=== PATIENT | female | born 1955 | race Caucasian/White ===

== ENCOUNTER 2019-01-10 12:49 | Day surgery (SDC) | payer MEDICARE, OTHER, SELFPAY ==
--- NOTE | 2019-01-10 | PATH_ITS ---
[facility] Accession Number: [id number] . 01 Material submitted: . PART A: DUODENUM BIOPSY PART B: ANTRUM BIOPSIES PART C: GE JUNCTION BIOPSIES PART D: POLYP AT 20CM . 02 Diagnosis: A. Duodenum, Biopsy: Duodenal mucosa with gastric heterotopia. Negative for increased intraepithelial lymphocytes or villous blunting. Negative for dysplasia and malignancy. . B. Stomach, Antrum, Biopsies: Antral mucosa with no diagnostic abnormality. No evidence of Helicobacter on H/E stain. Negative for intestinal metaplasia. Negative for dysplasia and malignancy. . C. Gastroesophageal Junction, Biopsies: Squamocolumnar junctional mucosa with no diagnostic abnormality. Negative for intestinal metaplasia. Negative for dysplasia and malignancy. . D. Colon, Polyp at 20 cm, Biopsy: Serrated lesion, favor sessile serrated adenoma. Benign spindled cell lesion, favor perineurioma. No evidence of atypia or high-grade dysplasia. [facility]/01/12/2019 . 02 Electronically signed: . Radha Al MD, Pathologist NPI- [id number] . 01 Gross description: . Received four formalin-filled containers, each labeled with the patient's name: . A. In a container labeled duodenum, the specimen consists of a 0.2 cm portion of tissue, entirely submitted in cassette A. B. In a container labeled antrum, the specimen consists of two 0.2-0.3 cm portions of tissue, entirely submitted in cassette B. C. In a container labeled GE junction, the specimen consists of three less than 0.1 cm to 0.3 cm portions of tissue, entirely submitted in cassette C. D. In a container labeled polyp at 20 cm, the specimen consists of a 0.4 cm portion of tissue, entirely submitted in cassette D. ([id number]) /FRR . 02 Microscopic: . Part C: An alcian blue stain was performed to evaluate for intestinal metaplasia and is negative. The control stain showed appropriate reactivity. . Part D: Immunohistochemical stains were performed to characterize the cells of interest. The control stains showed appropriate reactivity. . RESULTS: Desmin: Negative. S100: Negative. DOG1: Negative. . INTERPRETATION: The absence of desmin, S100 and DOG1 argue against leiomyoma, neuroma, and gastrointestinal stromal tumor, respectively. . * This test was developed and its performance characteristics determined by [facility]. It has not been cleared or approved by the U.S. Food and Drug Administration. The FDA has determined that such clearance or approval is not necessary. This test is used for clinical purposes. It should not be regarded as investigational or for research. . 02 Pathologist provided ICD-10: K31.7 . 02 CPT . 956318, 589249, 033566, 344835, R03789, [id number], 384396 Performed at: 01 [facility] [address] [place] [address], [place], [place] [id number] MD Bran Li MD Phone: [phone] Performed at: 02 [facility] [address] [place], [place] [id number] MD Radha Al MD Phone: [phone]
[2019-01-10 13:13] VITALS: BP 150/77; PULSE 77; RESP 16; TEMP 36.7; O2SAT 100; BMI 26.6
[2019-01-10] MEDS: LACTATED RINGERS 1,000 ML 150 ML IV (13:37)
[2019-01-10] MEDS: TETRACAINE/BENZOCAINE/BUTAMBEN (CETACAINE) BOTTLE 1 SPRAY TOP (15:01)
[2019-01-10] MEDS: LIDOCAINE 4% SOLN 50 ML 20 ML TOP (15:02)
[2019-01-10] MEDS: fentaNYL 250 MCG/5 ML INJ IV (15:18)
[2019-01-10] MEDS: MIDAZOLAM 5 MG/5 ML VIAL IV (15:19)
[2019-01-10 15:21] VITALS: BP 104/59; PULSE 65; RESP 16; TEMP 36.4; O2SAT 97
--- NOTE | 2019-01-10 15:22 | PM.HP.1 ---
History of Present Illness Date Patient Seen: 01/10/19 Time Patient Seen: 15:22 Chief complaint: EGD +COLONOSCOPY [id number] Narrative: Lida is a pleasant 63-year-old lady who presents for screening colonoscopy and endoscopy. We have discussed the risks and benefits of the procedure. She denies any changes in her health since I last saw her in the office on December 13 Patient History Family History Father Hypertension Social History marital status: household members: spouse occupational status: previously employed Smoking Status: Never smoker alcohol intake: never substance use type: does not use Family & Social History Family History Father Hypertension Social History: household members spouse Tobacco & Substance use: Smoking Status Never smoker alcohol intake never Meds Home Medications Medication Instructions Recorded Confirmed Type aspirin 81 mg chewable tablet 81 mg PO DAILY 12/13/18 01/10/19 History simvastatin 20 mg tablet 20 mg PO BEDTIME 12/13/18 01/10/19 History Allergies Allergy/AdvReac Type Severity Reaction Status Date / Time No Known Drug Allergies Allergy Unverified 12/13/18 09:40 Review of Systems Review of Systems All systems reviewed & are unremarkable except as noted in HPI and below Exam Vital Signs (past 8 hours): - 01/10/19 13:13 Temperature 98.1 F Pulse Rate 77 Respiratory Rate 16 Blood Pressure 150/77 H Pulse Oximetry 100 Oxygen Delivery Method Room Air Narrative Exam Narrative: Pleasant well-nourished lady in no distress HEENT: Normocephalic and atraumatic, pupils equal round reactive to light accommodation with anicteric sclera Lungs: Clear bilaterally Heart: Regular rate and rhythm Abdomen: Soft, nontender, active bowel sounds Extremities: Warm well perfused without edema Assessment & Plan Assessment & Plan narrative: Pleasant lady who is in need of a screening colonoscopy and an EGD for longstanding gastroesophageal reflux disease. We discussed the risks and benefits of both procedures and the patient expressed a desire to complete them both today.
--- NOTE | 2019-01-10 15:23 | PM.OP.1 ---
Operative Date/Time/Diagnoses Date of procedure: 01/10/19 Time of procedure: 15:23 Pre-op diagnosis: Gastroesophageal reflux disease Screening study Procedure & Clinicians Procedure: Esophagogastroduodenoscopy with biopsies and colonoscopy to the cecum with polypectomy x1 Same procedure as scheduled: Yes Indications: Last colonoscopy approximately 10 years ago Surgeon: Neena Brooks Anesthesia Type: Sedation (Versed 12 mg; fentanyl 300 mcg) Operative Notes Findings: 1. Nodular appearing mucosa in the bulb of the duodenum 2. Normal-appearing antrum without evidence of recent hemorrhage or ulceration 3. A few hyperplastic Freda glands present in the fundus of the stomach 4. Esophageal hiatus at 39 cm from the incisors 5. Mucosal junction at 36-37 cm from the incisors. The junction itself is quite irregular and there is 1 long tongue of ulcerated tissue covered in fibrinous exudate. The total length is approximately 1 cm. 6. Normal posterior oropharynx and vocal cords 7. Adequate prep 8. Mild diverticulosis limited to the sigmoid region 9. Polyp or submucosal lesion at 20 cm from the anal verge. Removed with cold forceps and retained for pathology 10. Grade 1-2 internal hemorrhoids Closure Type: not applicable Specimen(s): other (Polyp at 20 cm from the anal verge) Estimated Blood Loss (mL): 1 Procedure in detail: After obtaining informed consent, the patient was brought to the GI suite and placed in the left lateral decubitus position on the examination table. After placement of appropriate monitors, the patient was given incremental doses of Versed and Fentanyl until an appropriate level of sedation was achieved. A time out was held per SCOAP protocol. A digital rectal examination was performed and did not reveal any masses or obstructing lesions. The colonoscope was gently passed into the patient's anus and the entire colon navigated to the level of the cecum with minimal difficulty. Once in the cecum, the scope was withdrawn being sure to go before and beyond all mucosal folds and prominences and get an excellent examination. The findings are noted above. At the level of the rectal vault, the scope was retroflexed and the internal anal canal was examined. The scope was straightened and air aspirated from the colon. The instrument was removed from the patient's body and the procedure was concluded. The patient was allowed to awaken from sedation without difficulty and taken to the post-anesthesia care unit in good condition. Total sedation time was 32 min Total colonoscopy withdrawal time was 8 min and 4 sec Complications: none Condition: stable Disposition: PACU Plan for aftercare: 1. Discharge to home 2. Plan for next colonoscopy in 5 years or as clinically indicated 3. Start Protonix twice daily for 1 week and then once daily for 1 month thereafter. 4. Await pathology results for further recommendations regarding reflux symptoms.
[2019-01-10 15:25] VITALS: BP 93/52; PULSE 63; RESP 16; O2SAT 98
[2019-01-10 15:30] VITALS: BP 93/54; PULSE 62; RESP 17; O2SAT 99
[2019-01-10 15:38] VITALS: BP 146/82; PULSE 82; RESP 16; TEMP 36.6; O2SAT 99
== END 2019-01-10 16:05 | disposition home or self-care (01) ==
PROVIDERS: PCP Physician Assistant; Visit Provider Surgery
PROC: 0DJ08ZZ Inspection of Upper Intestinal Tract, Via Natural or Artificial Opening Endoscopic (ICD-10-PCS; CPT 43235; principal; 2019-01-10 14:00)
PROC: 0DJD8ZZ Inspection of Lower Intestinal Tract, Via Natural or Artificial Opening Endoscopic (ICD-10-PCS; CPT 45378; 2019-01-10 14:00)
DX: Z12.11 Encounter for screening for malignant neoplasm of colon (principal); K21.9 Gastro-esophageal reflux disease without esophagitis; K57.30 Diverticulosis of large intestine without perforation or abscess without bleeding; K22.10 Ulcer of esophagus without bleeding; K64.1 Second degree hemorrhoids; K62.1 Rectal polyp; K31.7 Polyp of stomach and duodenum
CPT/HCPCS: 45380; 43235; 88305; 88313; 88341; 88342; 99152; 99153; J2250; J3010